=== PATIENT | male | born 1980 | race Caucasian/White ===

== ENCOUNTER 2023-01-28 17:12 | Emergency (ER) | payer OTHER, SELFPAY ==
--- NOTE | ~2023-01-28 | XR_ITS ---
EXAMINATION: XR tibia fibula LT 2V INDICATION: Left leg pain TECHNIQUE: Two views of the left tibia and fibula are obtained on four radiographs. COMPARISON: None available FINDINGS: No fracture, dislocation, or subluxation. The bones and joint spaces are normal. There is s oft tissue swelling overlying the distal tibia anteriorly. IMPRESSION: 1. No acute osseous abnormality. Reviewed, dictated and finalized at location F. [facility]
[2023-01-28 17:17] VITALS: BP 160/89; PULSE 66; RESP 16; TEMP 36.6; O2SAT 100
--- NOTE | 2023-01-28 17:43 | ED.LOWEXIN ---
HPI - Extremity Injury (Lower) General Chief Complaint: Extremity Injury, Lower Stated Complaint: left leg injury Time Seen by Provider: 01/28/23 17:42 Source: patient Mode of arrival: ambulatory Limitations: no limitations History of Present Illness HPI Narrative: Patient is a 42 y/o male who presents to the ED with c/o left lower leg injury. Patient reports he was hit in his L lopez by a puck while playing hockey 10 days ago. He states he had a large area of swelling to the lopez, which has since improved in size, but patient has had persistent pain and swelling in his lower leg. He denies any issues with ambulating. 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 Patient did travel via car to and from [place]. Patient denies Hx of blood clots. Denies any chest pain or difficulty breathing. Denies numbness/tingling. Related Data Allergies Allergy/AdvReac Type Severity Reaction Status Date / Time No Known Allergies Allergy Verified 01/28/23 18:34 Review of Systems Review of Systems: CONSTITUTIONAL: Denies fever, chills, or sweats. CARDIOVASCULAR: Denies chest pain. RESPIRATORY: Denies dyspnea. GASTROINTESTINAL: Denies abdominal pain, nausea, vomiting. SKIN: See HPI. MUSCULOSKELETAL: See HPI. NEUROLOGIC: Denies tingling, numbness, or weakness. All systems reviewed & are unremarkable except as noted in HPI and below PMFSH Past Medical History Medical History (Updated 01/29/23 @ 00:00 by [facility]) No pertinent past medical history Surgical History Surgical History (Updated 01/28/23 @ 17:46 by Lelia Barr PA-C) No pertinent past surgical history Social History Social History (Updated 01/28/23 @ 17:46 by Lelia Barr PA-C) Smoking status: Never smoker Exam Narrative: GENERAL: Well appearing, well-nourished, non-toxic, in no acute distress. HEAD: Normocephalic, atraumatic. NECK: Supple. No adenopathy, no masses. RESPIRATORY: Airway patent, respirations nonlabored. Clear to auscultation bilaterally, no rales, rhonchi, wheezing. CARDIOVASCULAR: Regular rate and rhythm without murmurs, rubs, or gallops. DP and PT pulses 2+ and equal bilaterally. MUSCULOSKELETAL: Moves all extremities. Strength/ROM intact without gross deformities. Full ROM of L ankle. Area of contusion/redness/bruising to L proximal anterior lopez. Mild swelling noted to lower leg, medial ankle, surrounding medial malleoli. SKIN: Warm, dry, normal color. No rashes. NEURO: A&O X3. Speech clear. Cranial nerves II-XII grossly intact. Steady gait. No ataxic movements. PSYCHIATRIC: Appropriate mood and affect. Normal interaction. Course Vital Signs Vital signs: Vital Signs Temperature 97.8 F 01/28/23 17:17 Pulse Rate 66 01/28/23 17:17 Respiratory Rate 16 01/28/23 17:17 Blood Pressure 160/89 H 01/28/23 17:17 Pulse Oximetry 100 01/28/23 17:17 Oxygen Delivery Room Air 01/28/23 17:17 Temperature 97.8 F 01/28/23 17:17 Pulse Rate 62 01/28/23 18:35 Respiratory Rate 18 01/28/23 18:35 Blood Pressure 122/76 01/28/23 18:35 Pulse Oximetry 100 01/28/23 18:35 Oxygen Delivery Room Air 01/28/23 17:17 MDM - Extremity Injury (Lower) MDM Narrative Medical decision making narrative: Patient presented w/ lower extremity pain/swelling 10 days s/p hockey puck injury, concerned for DVT. XR tib/fib negative. Patient neurovascularly intact. D-dimer WNL. I discussed with patient that we do not have ultrasound available at this time. While I am less suspicious for a DVT than traumatic hematoma/swelling traveling down leg d/t gravity, patient does have FHx of blood clots and frequent long distance travel with his job. Cannot definitively r/o traumatic DVT and will set up patient for outpatient ultrasound tomorrow morning at 7 AM. Results will be contacted to primary care doctor. Discussed case with Dr. Beauchamp
[2023-01-28 18:26] LABS: INR 1.1; Partial Thromboplastin Time 28.8 SECONDS (22.3-36.8); Prothrombin Time 13.4 Seconds (11.1-14.7)
[2023-01-28 18:35] VITALS: BP 122/76; PULSE 62; RESP 18; O2SAT 100
[2023-01-28 19:14] LABS: D Dimer 0.46 ug/mL (<0.48)
== END 2023-01-28 20:10 | disposition home or self-care (01) ==
PROVIDERS: Emergency Provider Physician Assistant
DX: R22.42 Localized swelling, mass and lump, left lower limb (principal); S80.12XA Contusion of left lower leg, initial encounter; W21.220A Struck by ice hockey puck, initial encounter
CPT/HCPCS: 36415; 73590; 85380; 85610; 85730; 99283

== ENCOUNTER 2023-01-29 07:18 | Outpatient (CLI) | payer OTHER, SELFPAY ==
--- NOTE | ~2023-01-29 | US_ITS ---
EXAMINATION: US venous doppler [facility] DATE: 01/29/2023 07:59 INDICATION: Left lower limb focal swelling and erythema. TECHNIQUE: Grayscale ultrasound images without and with compression and Doppler ultrasound images of the left lower extremity veins were obtained. COMPARISON: Left tibia and fibula radiographs 01/28/2023 FINDINGS: The visualized portions of left common femoral vein, profunda (deep) femoral vein, femoral vein, popl iteal vein, peroneal veins, posterior tibial veins, and greater saphenous vein outflow are patent. An terior to tibia, there is a 2.8 x 1.7 x 0.7 cm hematoma. IMPRESSION: 1. No deep venous thrombosis. 2. Hematoma in the left lopez. Reviewed, dictated and finalized at location A. CHECKER
== END 2023-01-29 07:19 | disposition home or self-care (01) ==
PROVIDERS: Visit Provider Family Medicine
DX: R22.42 Localized swelling, mass and lump, left lower limb (principal); S80.12XA Contusion of left lower leg, initial encounter; X58.XXXA Exposure to other specified factors, initial encounter
CPT/HCPCS: 93971

== ENCOUNTER 2024-01-29 10:12 | Emergency (ER) | payer OTHER, SELFPAY ==
[2024-01-29 10:46] VITALS: BP 137/77; PULSE 69; RESP 18; TEMP 36.7; O2SAT 99
--- NOTE | 2024-01-29 10:55 | PC.NURSE ---
Pt requesting to have a MRI. Instructed MRI are not usually ordered thru ER. Informed protocol is to start with Xray then follow up with ortho. Pt ask to have time to call his to decide if he wants to stay
--- NOTE | 2024-01-29 12:06 | ED.LOWEXIN ---
HPI - Extremity Injury (Lower) General Chief Complaint: Extremity Injury, Lower Stated Complaint: left knee injury Time Seen by Provider: 01/29/24 11:19 History of Present Illness HPI Narrative: Patient is a 43-year-old male who presents ER with left knee pain. He has lightened hockey last night when his knee bent medially and he felt a pop and pain. He has been having pain with any sort of weight-bearing since this occurred. He cannot flex his leg due to pain. He has not been taking any pain medication. He is concerned he may need an MRI because he had a meniscus injury on the right side years ago. He would like orthopedic surgery referral. He has no numbness or tingling. No swelling to the knee. Related Data Allergies Allergy/AdvReac Type Severity Reaction Status Date / Time No Known Allergies Allergy Verified 01/29/24 11:07 Review of Systems Musculoskeletal: Musculoskeletal: Denies back pain, Reports arthralgias and Denies joint swelling Integumentary/Breasts: Skin/Breast: Reports system reviewed and no additional complaints, except as docu Neurologic: Denies focal weakness and Denies numbness PMFSH Past Medical History Medical History (Updated 01/29/24 @ 12:15 by Alexander Warren MD) No pertinent past medical history Surgical History Surgical History (Updated 01/29/24 @ 12:15 by Alexander Warren MD) Hx of arthroscopic knee surgery right side Social History Social History (Updated 01/28/23 @ 17:46 by Lelia Barr PA-C) Smoking status: Never smoker Exam Narrative: GENERAL: Well-appearing, well-nourished, and in no acute distress. HEAD: Normocephalic, atraumatic. EXTREMITIES: Left lower extremity with passive range of motion to approximately 90? before patient has significant pain. Patient reports he cannot perform range of motion on his own due to pain, at rest he has the leg extended and in very partial flexion. No anterior joint line tenderness. There is tenderness over the MCL of left knee. There is no effusion left knee. SKIN: Warm, dry, no rash. NEURO: Alert and oriented x3. PSYCH: Normal mood and affect. Course Course Emergency Course: Patient will be placed a knee immobilizer for comfort, he is declining imaging. He will be started on anti-inflammatory medications. We discussed breast /eye/compression /elevation. Patient will be given ortho referral. Vital Signs Vital signs: Vital Signs Temperature 98.0 F 01/29/24 10:46 Pulse Rate 69 01/29/24 10:46 Respiratory Rate 18 01/29/24 10:46 Blood Pressure 137/77 01/29/24 10:46 Pulse Oximetry 99 01/29/24 10:46 Oxygen Delivery Room Air 01/29/24 10:46 Temperature 98.0 F 01/29/24 10:46 Pulse Rate 69 01/29/24 10:46 Respiratory Rate 18 01/29/24 10:46 Blood Pressure 137/77 01/29/24 10:46 Pulse Oximetry 99 01/29/24 10:46 Oxygen Delivery Room Air 01/29/24 10:46 Discharge Plan Discharge Clinical Impression: MCL sprain of left knee Patient Disposition: Home, Self-Care Condition: Stable Instructions: Antibiotic Form, Knee Sprain (ED) Additional Instructions: It is felt you likely sprained your MCL. It is also possible to have injury of your meniscus. Recommended you follow-up with orthopedic surgery or your primary care physician to obtain further imaging as necessary. Take anti-inflammatory medications and where the immobilization device to help with healing. Return the ER if your leg is swollen, you have chest pain with shortness of breath, or you have additional concerns. Prescriptions: New naproxen 375 mg tablet 375 mg PO BID Qty: 14 0RF Follow-up/Referrals: Lucretia Hall MD [Primary Care Provider] - 1 Week Edwin Pendleton MD [Physician] - 1 Week
== END 2024-01-29 12:15 | disposition home or self-care (01) ==
PROVIDERS: Emergency Provider Emergency Medicine; PCP Family Medicine
DX: S83.412A Sprain of medial collateral ligament of left knee, initial encounter (principal); X50.9XXA Other and unspecified overexertion or strenuous movements or postures, initial encounter; Y93.22 Activity, ice hockey
CPT/HCPCS: 99283

== ENCOUNTER 2024-02-08 06:43 | Outpatient (CLI) | payer OTHER, SELFPAY ==
--- NOTE | ~2024-02-08 | MR_ITS ---
MRI of the left knee Clinical history: Effusion Technique: Coronal proton density and proton density-weighted images, sagittal proton-density and T2 fat-sat images, and axial proton-density fat-saturated images were acquired. Findings: Anterior and posterior cruciate ligaments are intact. Medial collateral ligament is mildly thickened and hyperintense proximally. Lateral collateral ligament complex is intact. Popliteus tendo n is intact. Medial and lateral menisci are intact, without evidence of tear. Articular cartilage is relatively well preserved throughout the knee. Bone marrow signals are unremar kable. Extensor mechanism is intact. Small joint effusion present. No Pop's cyst. Impression: Probable grade 1 to mild grade 2 MCL sprain. Small joint effusion. Reviewed, dictated and finalized at location . Impression: Probable grade 1 to mild grade 2 MCL sprain. Small joint effusion.
== END 2024-02-08 06:44 | disposition home or self-care (01) ==
PROVIDERS: PCP Family Medicine; Visit Provider Orthopaedic Surgery
DX: M25.462 Effusion, left knee (principal); M23.92 Unspecified internal derangement of left knee; S89.92XA Unspecified injury of left lower leg, initial encounter; X58.XXXA Exposure to other specified factors, initial encounter
CPT/HCPCS: 73721

== ENCOUNTER 2024-04-08 10:08 | Emergency (ER) | payer OTHER, SELFPAY ==
[2024-04-08 10:19] VITALS: BP 133/69; PULSE 61; RESP 18; TEMP 36.2; O2SAT 98
--- NOTE | 2024-04-08 10:58 | ED.URI ---
HPI - URI/Sore Throat General Chief Complaint: Upper Respiratory Infection Stated Complaint: Sore Throat Time Seen by Provider: 04/08/24 10:58 Source: patient Mode of arrival: ambulatory Limitations: no limitations History of Present Illness HPI Narrative: 43 yo M presents with c/o sore throat for 3 days, fatigue, bodyaches and headache. Afebrile. NO known strep exposure. All systems reviewed and negative except as noted above. Related Data Allergies Allergy/AdvReac Type Severity Reaction Status Date / Time No Known Allergies Allergy Verified 04/08/24 10:28 Review of Systems Review of Systems: CONSTITUTIONAL: Denies fever, chills, or sweats. Reports fatigue. EYES: Denies visual changes, redness, or discharge. ENT: Denies rhinorrhea, congestion. Reports sore throat. Denies otalgia. CARDIOVASCULAR: Denies chest pain, palpitations, or edema. RESPIRATORY: Denies cough or dyspnea. GASTROINTESTINAL: Denies abdominal pain, nausea, vomiting, or diarrhea. GENITOURINARY: Denies dysuria or hematuria. SKIN: Denies rash or itching. MUSCULOSKELETAL: Denies back pain, joint pain. reports myalgia. NEUROLOGIC: Denies headache, numbness, or weakness. PSYCHIATRIC: Denies anxiety or depression. All other systems reviewed are negative, except as documented in HPI. [facility] Past Medical History Medical History No pertinent past medical history Surgical History Surgical History Hx of arthroscopic knee surgery right side Social History Social History Smoking status: Never smoker Comments At time of signature, agree with nursing past medical, surgical, social and family history. There is no relevant family history pertinent to the presenting complaint. Exam Narrative: GENERAL: This is a well-nourished, well-developed patient, in no apparent distress. HEAD: normocephalic, atraumatic. EYES: PERRL. Sclera clear/white. Vision is grossly intact. EARS: External ears normal, auditory canals clear and without drainage, TMs normal without perforation. Hearing grossly intact. NOSE: External nose normal with no obvious nasal discharge, nares without redness, no rhinorrhea. THROAT: Mucous membranes moist, erythema and swelling to posterior pharynx without exudates. Tonsils 1+ bilaterally. NECK: Neck supple, non-tender with anterior cervical lymphadenopathy bilaterally. No masses or thyromegaly. CARDIOVASCULAR: Regular rate and rhythm without murmurs, gallops, or rubs. RESPIRATORY: Clear to auscultation. Breath sounds equal bilaterally. No wheezes, rales, or rhonchi. SKIN: warm, Dry, intact with no suspicious lesions or rash, good texture and turgor. NEURO: awake, alert, and oriented to person, place and time. There were no obvious focal neurologic abnormalities. EXTREMITIES: No joint tenderness, effusion, or edema noted. Course Course Level of Care: Express Care Visit Vital Signs Vital signs: Vital Signs Temperature 36.2 C L 04/08/24 10:19 Pulse Rate 61 04/08/24 10:19 Respiratory Rate 18 04/08/24 10:19 Blood Pressure 133/69 04/08/24 10:19 Pulse Oximetry 98 04/08/24 10:19 Oxygen Delivery Room Air 04/08/24 10:19 Temperature 36.2 C L 04/08/24 10:19 Pulse Rate 61 04/08/24 10:19 Respiratory Rate 18 04/08/24 10:19 Blood Pressure 133/69 04/08/24 10:19 Pulse Oximetry 98 04/08/24 10:19 Oxygen Delivery Room Air 04/08/24 10:19 Reviewed MDM - URI/Sore Throat MDM Narrative Medical decision making narrative: Patient is aware of diagnosis, understands and agrees to treatment plan. Anticipatory guidance given. Patient agrees to follow-up as directed and is aware of reasons to seek care at the emergency department. Portions of this record may have been created with voice recognition software Will treat patient for strep throat due to
== END 2024-04-08 11:07 | disposition home or self-care (01) ==
PROVIDERS: Emergency Provider Nurse Practitioner Family; PCP Family Medicine
DX: J02.9 Acute pharyngitis, unspecified (principal)
CPT/HCPCS: 87081; 87880; 99213; G0463